=== PATIENT | male | born 1990 | race Caucasian/White ===

== ENCOUNTER 2016-07-05 11:00 | Emergency (ER) | payer MEDICAID ==
[~2016-07-05] VITALS: Ht 180.3 cm; Wt 92.5 kg
[2016-07-05] MEDS ORDERED: ALBUTEROL SULF 2.5 MG/0.5ML(0.5%) NEB SOLN HHN STA (14:35)
[2016-07-05 14:37] VITALS: BP 142/79
[2016-07-05] MEDS ORDERED: IPRATROPIUM BROM 0.5 MG/2.5ML INH SOL NEB PRN (14:45)
== END 2016-07-05 15:26 | disposition home or self-care (01) ==
LOC: ER 11:02
DX: J40 Bronchitis, not specified as acute or chronic (principal)
CPT/HCPCS: 71020; 94640